=== PATIENT | female | born 1975 | race Caucasian/White ===

== ENCOUNTER 2024-08-24 14:20 | Emergency (ER) | payer SELFPAY ==
--- NOTE | ~2024-08-24 | XR_ITS ---
EXAMINATION: XR CHEST CLINICAL INFORMATION: chest pain, sob COMPARISON: None available. TECHNIQUE: 2 views of the chest were obtained. FINDINGS: Lungs clear. No pleural effusions. Heart and pulmonary vessels are normal. XR/XR chest 2V IMPRESSION: No active disease. Electronically signed by: Steve Liu MD 08/24/2024 05:18 PM [facility] [place]
--- NOTE | 2024-08-24 14:29 | ECG_ITS ---
Test Reason : PALPITATIONS Blood Pressure : / mmHG Vent. Rate : 096 BPM Atrial Rate : 096 BPM P-R Int : 114 ms QRS Dur : 068 ms QT Int : 354 ms P-R-T Axes : 033 -68 024 degrees QTc Int : 447 ms Normal sinus rhythm with sinus arrhythmia Left axis deviation Low voltage QRS Abnormal ECG No previous ECGs available Referred By: Laxmi Bains Electronically Signed By:KAMRAN CONDE MD
[2024-08-24 14:47] LABS: MANUAL DIFF FLAG NO
[2024-08-24 14:50] LABS: Basophils Absolute Auto 0.1 X10*3/uL (0.0-0.2); Basophils Percent Auto 0.5 % (0-2); Eosinophils Absolute Auto 0.1 X10*3/uL (0.0-0.4); Eosinophils Percent Auto 1.3 % (0-4); Hematocrit 42.1 % (37.0-47.0); Hemoglobin 14.3 g/dl (12.0-16.0); Imm Gran Abs Auto 0.03 X10*3/uL (0.00-0.03); Imm Gran Pct Auto 0.3 % (0.0-0.4); Lymphocytes Absolute Auto 1.6 X10*3/uL (1.2-4.9); Mean Corpuscular Hemoglobin 30.2 pg (27.0-33.0); Mean Platelet Volume 10.5 fL (9.4-12.3); Monocytes Absolute Auto 0.7 X10*3/uL (0.1-1.2); Monocytes Percent Auto 7.1 % (2-11); Neutrophils Percent Auto 73.8 % (45-73); Platelet Count 252 X10*3/uL (160-400); Red Blood Count 4.73 X10*6/uL (4.20-5.50); Red Cell Distribution Width 12.3 % (11.0-16.0); White Blood Count 9.5 X10*3/uL (4.8-10.8)
--- NOTE | 2024-08-24 14:55 | ED.ARRPALP ---
HPI - Arrhythmia/Palpitations General Chief Complaint: Arrhythmia/Palpitations Stated Complaint: Heart palpitations Related Data Allergies Allergy/AdvReac Type Severity Reaction Status Date / Time NSAIDS (Non-Steroidal AdvReac Gastrointestinal Verified 08/24/24 14:58 Anti-Inflamma Hemorrhage PMFSH Social History Social History Advance Directives: No Advance Directives Information Provided: No Do you have a plan to hurt others: No Plan Physical Exam Vital Signs: Vital Signs: Last Vital Signs Temp 98.5 F 08/24/24 14:56 Pulse 111 H 08/24/24 14:56 Resp 20 08/24/24 14:56 BP 164/90 H 08/24/24 14:56 Pulse Ox 98 08/24/24 14:56 O2 Del Method Room Air 08/24/24 14:56 BMI result Body Mass Index 31.7 Course Course Course Narrative: This is a Rapid Medical Examination (RME) performed by Racquel Bains PA-C in triage. Full HPI, ROS, assessment and treatment plan per primary provider in the Main ED. 49 yo female with history of GI bleed, hx AVM s/p craniotomy x2 in 2021 presents to the ER for evaluation of palpitations for the last 1 week. symptoms occur every evening. O2 sat monitor read 130s today. she also endorses having to take deep breaths to catch her breath. sister at 47 from sudden cardiac arrest. father hx SVT s/p ablation. she reports mild intermittent pain in the left side of her chest, none at present. former smoker, no hx DM2 or HTN. she reports URI symptoms as well. Plan: EKG, labs, CXR Reevaluation(s) Reevaluation #1: patient eloped prior to completing treatment Medical Decision Making Lab Data 08/24/24 14:43 08/24/24 14:43 Labs: Lab Results 08/24/24 Range/Units 14:43 WBC 9.5 (4.8-10.8) X10*3/uL RBC 4.73 (4.20-5.50) X10*6/uL Hgb 14.3 (12.0-16.0) g/dl Hct 42.1 (37.0-47.0) % MCV 89.0 (80.0-98.0) fL MCH 30.2 (27.0-33.0) pg MCHC 34.0 (31.0-35.0) g/dl RDW 12.3 (11.0-16.0) % Plt Count 252 (160-400) X10*3/uL MPV 10.5 (9.4-12.3) fL Immature Gran % (Auto) 0.3 (0.0-0.4) % Neut % (Auto) 73.8 H (45-73) % Lymph % (Auto) 17.0 L (20-40) % Sherman % (Auto) 7.1 (2-11) % Eos % (Auto) 1.3 (0-4) % Baso % (Auto) 0.5 (0-2) % Lymph # (Auto) 1.6 (1.2-4.9) X10*3/uL Sherman # (Auto) 0.7 (0.1-1.2) X10*3/uL Eos # (Auto) 0.1 (0.0-0.4) X10*3/uL Baso # (Auto) 0.1 (0.0-0.2) X10*3/uL Abs Immat Gran (auto) 0.03 (0.00-0.03) X10*3/uL Absolute Neuts (auto) 7.0 (2.0-8.3) x10*3/uL Absolute Nucleated RBC 0.000 (0.0-0.012) X10*3/uL Nucleated RBC % (auto) 0.0 (0.0-0.2) /100WBC Sodium 138 (135-145) mmol/L Potassium 4.4 (3.3-5.1) mmol/L Chloride 107 (96-108) mmol/L Carbon Dioxide 26 (22-29) mmol/L Anion Gap 9 L (12-20) BUN 6 L (9-16) mg/dL Creatinine 0.79 (0.5-1.4) mg/dL Estim Creat Clear Calc 88.8 Estimated GFR > 60 Random Glucose 160 H (60-115) mg/dL Calcium 8.9 (8.4-10.2) mg/dL Magnesium 2.1 (1.6-2.6) mg/dL Total Bilirubin 0.3 (0.0-1.0) mg/dL Direct Bilirubin 0.1 (0.0-0.5) mg/dL AST 26 (5-31) U/L ALT 33 H (0-31) U/L Alkaline Phosphatase 84 (39-117) U/L Troponin I High Sens < 2.7 (<3.5-17.0) ng/L Total Protein 6.9 (6.5-8.0) g/dL Albumin 4.3 (3.5-5.0) g/dL TSH 2.14 (0.32-4.0) uIU/mL Influenza Type A (PCR) NEGATIVE (Negative) Influenza Type B (PCR) NEGATIVE (Negative) RSV RNA Qual (PCR) NEGATIVE (Negative) SARS-CoV-2 RNA (RT-PCR) NEGATIVE (Negative) Discharge Plan Discharge Clinical Impression: Palpitations Patient Disposition: Left W/O Completing Treatment Discharge Date/Time: 08/24/24 20:55
[2024-08-24 14:56] VITALS: BP 164/90; PULSE 111; RESP 20; TEMP 36.9; O2SAT 98; BMI 31.7
[2024-08-24 15:14] LABS: Alanine Aminotransferase 33 U/L (0-31); Albumin Level 4.3 g/dL (3.5-5.0); Alkaline Phosphatase 84 U/L (39-117); Anion Gap 9 (12-20); Aspartate Amino Transferase 26 U/L (5-31); Bilirubin Direct 0.1 mg/dL (0.0-0.5); Bilirubin Total 0.3 mg/dL (0.0-1.0); Blood Urea Nitrogen 6 mg/dL (9-16); Calcium 8.9 mg/dL (8.4-10.2); Carbon Dioxide 26 mmol/L (22-29); Chloride 107 mmol/L (96-108); Creatinine Clr Calc Pharmacy 88.8; Estimated Glomerular Filt Rate > 60; Glucose Random 160 mg/dL (60-115); Magnesium 2.1 mg/dL (1.6-2.6); Potassium 4.4 mmol/L (3.3-5.1); Sodium 138 mmol/L (135-145); Total Protein 6.9 g/dL (6.5-8.0)
[2024-08-24 15:17] LABS: Troponin-I High Sensitivity < 2.7 ng/L (<3.5-17.0)
[2024-08-24 15:27] LABS: Influenza A PCR NEGATIVE (Negative); Influenza B PCR NEGATIVE (Negative); Resp Syncy Virus RNA Qual PCR NEGATIVE (Negative); SARS COV2 PCR INHOUSE NEGATIVE (Negative)
[2024-08-24 15:29] LABS: TSH reflex Free T4 2.14 uIU/mL (0.32-4.0)
== END 2024-08-24 20:55 | disposition left against medical advice (07) ==
PROVIDERS: Physician Assistant; Emergency Provider Emergency Medicine Emergency Medical Services; PCP Family Medicine
DX: R00.2 Palpitations (principal); R07.9 Chest pain, unspecified; R06.02 Shortness of breath; Z03.818 Encounter for observation for suspected exposure to other biological agents ruled out; Z87.891 Personal history of nicotine dependence
CPT/HCPCS: 0241U; 36415; 71046; 80048; 80076; 83735; 84443; 84484; 85025; 93005; 99283

== ENCOUNTER → 2024-08-24 14:29 | Outpatient (BNV) | payer SELFPAY | PROVIDERS: Emergency Provider Emergency Medicine Emergency Medical Services; PCP Family Medicine; Visit Provider Internal Medicine Cardiovascular Disease | DX: R94.31 Abnormal electrocardiogram [ECG] [EKG] (principal) | CPT/HCPCS: 93010 ==